=== PATIENT | female | born 1950 | race Hispanic/Latino ===

== ENCOUNTER → 2017-08-26 | Outpatient (CLI) | payer OTHER, MEDICARE | END | disposition home or self-care (01) | LOC: RAH 13:22 | PROVIDERS: ATTEND Family Medicine | DX: I73.89 Other specified peripheral vascular diseases (principal); M79.89 Other specified soft tissue disorders | CPT/HCPCS: 93971 ==

== ENCOUNTER 2019-07-02 18:00 | Observation (INO) | payer OTHER, MEDICARE ==
[~2019-07-02] VITALS: Ht 165.1 cm; Wt 72.2 kg
[2019-07-02 18:36] LABS: BASOPHILS % (AUTO) 0.4 % (0.0-5.0); EOSINOPHILS % (AUTO) 1.2 % (0.0-8.0); HEMATOCRIT 33.2 % (36-48); LYMPHOCYTES % (AUTO) 11.6 % (21.0-51.0); MEAN CORPUSCULAR HEMOGLOBIN 28.5 pg (27.0-33.0); MEAN CORPUSCULAR HGB CONC 33.1 g/dL (32.0-36.0); MEAN CORPUSCULAR VOLUME 86.2 fL (79-99); MONOCYTES % (AUTO) 5.7 % (3.0-13.0); NEUTROPHILS % (AUTO) 81.1 % (40.0-77.0); NUCLEATED RED BLOOD CELLS 0.1 % (0.0-0.19); PLATELET COUNT (AUTO) 218 K/uL (130-400); RED BLOOD CELL COUNT(AUTO) 3.85 MIL/uL (4.00-5.50); RED CELL DISTRIBUTION WIDTH 13.9 % (11.0-15.5); WHITE BLOOD COUNT (AUTO) 12.7 K/uL (4.8-10.8)
[2019-07-02 18:48] LABS: CARBON DIOXIDE 27 mmol/L (21-32); CHLORIDE 100 mmol/L (101-111); CREATININE 1.5 mg/dL (0.5-1.5); GLOMERULAR FILTR. RATE CALC 37 mL/min (>60); GLUCOSE,RANDOM 320 mg/dL (70-105); POTASSIUM 4.9 mmol/L (3.5-5.1); SODIUM SERUM 135 mmol/L (136-145); UREA NITROGEN, BLOOD 31 mg/dL (7-18)
[2019-07-02 18:57] LABS: INR 0.93 (0.85-1.15); PARTIAL THROMBOPLASTIN TIME 24.3 SEC (26.3-35.5); PROTHROMBIN TIME 9.8 SEC (9.6-11.6)
[2019-07-02 18:59] LABS: ALANINE AMINOTRANSFERASE 15 U/L (12-78); ALBUMIN 2.8 g/dL (3.5-5.0); ASPARTATE AMINOTRANSFERASE 16 U/L (10-37); BILIRUBIN,TOTAL 0.2 mg/dL (0.2-1.0); CREATINE KINASE, TOTAL 154 U/L (21-232); MYOGLOBIN 97 ng/mL (10-92); TOTAL PROTEIN, SERUM 6.9 g/dL (6.0-8.3); TROPONIN I < 0.04 ng/mL (0.00-0.06)
[2019-07-02 19:30] LABS: APPEARANCE,URINE Clear (CLEAR); BILIRUBIN,URINE Negative (NEGATIVE); COLOR,URINE Yellow (YELLOW); GLUCOSE, URINE (UA) >=1000 mg/dL (NEGATIVE); KETONES,URINE Negative (NEGATIVE); LEUKOCYTE ESTERASE ,URINE Negative (NEGATIVE); NITRATE,URINE Positive (NEGATIVE); OCCULT BLOOD,URINE Moderate (NEGATIVE); PROTEIN,URINE 300 mg/dL (NEGATIVE); UROBILINOGEN,URINE 0.2 mg/dL (0.2-1.0)
[2019-07-02] MEDS ORDERED: VANCOMYCIN 1GM+NS 250ML 250 ML IV ONE (19:54)
[2019-07-02] MEDS ORDERED: ZOSYN 3.375GM+NS 50ML 50 ML IV ONE (19:54)
[2019-07-02] MEDS ORDERED: INSULIN HUMULIN R 100 UNIT/ML 3ML ONE (19:55)
[2019-07-02] MEDS ORDERED: SODIUM CHLORIDE 0.9% 1000ML 1,000 ML IV ONE (20:01)
[2019-07-02 20:05] LABS: BACTERIA,URINE Moderate /HPF (None Seen); RBC,URINE 0-1 /HPF (0-1)
[2019-07-02 20:06] LABS: SQUAMOUS EPITHELIAL CELL,UR Few /HPF (0-2)
[2019-07-02] MEDS ORDERED: DEXTROSE 50%-WATER 50 ML DISP.SYRIN IV PRN (21:30)
[2019-07-02] MEDS ORDERED: GLUCAGON 1MG KIT 1 MG ML IM PRN (21:30)
[2019-07-02 22:10] VITALS: BP 147/70
[2019-07-03] VITALS (7 sets, daily range): BP systolic 131–169; BP diastolic 59–79
[2019-07-03] MEDS: IBUPROFEN 800 MG TAB PO SCH ×4 (00:12→18:00)
[2019-07-03] MEDS ORDERED: ZOLPIDEM TARTRATE 5 MG TAB PO PRN (02:45)
[2019-07-03] MEDS ORDERED: GUAIFENESIN-DM 200/20 MG 10 ML PO PRN (02:45)
[2019-07-03] MEDS ORDERED: NITROGLYCERIN 0.4 MG SL TAB SL PRN (02:45)
[2019-07-03] MEDS ORDERED: DIPHENHYDRAMINE HCL 25 MG CAPSULE PO PRN (02:45)
[2019-07-03] MEDS ORDERED: ACETAMINOPHEN 325 MG TAB PO PRN ×2 (02:45)
[2019-07-03] MEDS ORDERED: ONDANSETRON HCL 4 MG/2 ML VIAL IVP PRN (02:45)
[2019-07-03] MEDS ORDERED: MAG HYDROX/AL HYDROX/SIMETH ES 30 ML SUSP UDCUP PO PRN (02:45)
[2019-07-03] MEDS ORDERED: VANCOMYCIN PROTOCOL PER PHARMACY IV SCH (02:45)
[2019-07-03] MEDS ORDERED: GUAIFENESIN SUGAR-FREE 100 MG/5 ML UDCUP PO PRN (02:45)
[2019-07-03] MEDS ORDERED: LACTULOSE 20 GM/30 ML UDCUP PO PRN (02:45)
[2019-07-03] MEDS ORDERED: DiphenhydrAMINE HCL 50 MG/ML VIAL IVP PRN (02:45)
[2019-07-03] MEDS ORDERED: CLONIDINE HCL 0.1 MG TABLET PO PRN (02:45)
[2019-07-03] MEDS: ZOSYN 3.375GM+NS 50ML 50 ML IV SCH ×3 (04:14→20:26)
[2019-07-03 05:01] LABS: HEMATOCRIT 28.2 % (36-48); MEAN CORPUSCULAR HEMOGLOBIN 28.6 pg (27.0-33.0); MEAN CORPUSCULAR HGB CONC 33.4 g/dL (32.0-36.0); MEAN CORPUSCULAR VOLUME 85.6 fL (79-99); PLATELET COUNT (AUTO) 202 K/uL (130-400); RED BLOOD CELL COUNT(AUTO) 3.29 MIL/uL (4.00-5.50); RED CELL DISTRIBUTION WIDTH 14.2 % (11.0-15.5); WHITE BLOOD COUNT (AUTO) 10.1 K/uL (4.8-10.8)
[2019-07-03 05:19] LABS: ALBUMIN 2.3 g/dL (3.5-5.0); BILIRUBIN,TOTAL 0.2 mg/dL (0.2-1.0); CREATININE 1.7 mg/dL (0.5-1.5); POTASSIUM 4.5 mmol/L (3.5-5.1); TOTAL PROTEIN, SERUM 5.9 g/dL (6.0-8.3)
[2019-07-03] MEDS: INSULIN R PO SS2 SQ SCH ×4 (06:10→20:31)
[2019-07-03] MEDS: PANTOPRAZOLE SODIUM 40 MG TABLET.DR PO SCH (08:42)
[2019-07-03] MEDS: ASPIRIN 81MG TAB.CHEW PO SCH (08:42)
[2019-07-03] MEDS ORDERED: OMEP-50 PO (11:08)
[2019-07-03] MEDS ORDERED: INSU100I13 SQ (11:08)
[2019-07-03] MEDS ORDERED: LEVO150T11 PO (11:08)
[2019-07-03] MEDS ORDERED: LISI10TA7 PO (11:08)
[2019-07-03] MEDS ORDERED: ATOR-2 PO (11:08)
[2019-07-03] MEDS ORDERED: HONEY 1 APPL/ML TUBE TP SCH (15:30)
[2019-07-03] MEDS: VANCOMYCIN 1GM+NS 250ML 250 ML IV SCH (16:59)
[2019-07-03] MEDS ORDERED: ATORVASTATIN CALCIUM 40 MG TABLET PO SCH (21:00)
[2019-07-04] MEDS: IBUPROFEN 800 MG TAB PO SCH ×3 (00:32→12:58)
[2019-07-04 03:57] VITALS: BP 120/54
[2019-07-04] MEDS: ZOSYN 3.375GM+NS 50ML 50 ML IV SCH (04:03)
[2019-07-04 04:19] LABS: BASOPHILS % (AUTO) 0.6 % (0.0-5.0); EOSINOPHILS % (AUTO) 3.9 % (0.0-8.0); HEMATOCRIT 28.1 % (36-48); LYMPHOCYTES % (AUTO) 21.2 % (21.0-51.0); MEAN CORPUSCULAR VOLUME 85.3 fL (79-99); MONOCYTES % (AUTO) 6.6 % (3.0-13.0); NEUTROPHILS % (AUTO) 67.7 % (40.0-77.0); PLATELET COUNT (AUTO) 200 K/uL (130-400); RED BLOOD CELL COUNT(AUTO) 3.29 MIL/uL (4.00-5.50); RED CELL DISTRIBUTION WIDTH 13.7 % (11.0-15.5); WHITE BLOOD COUNT (AUTO) 9.2 K/uL (4.8-10.8)
[2019-07-04 04:26] LABS: HEMOGLOBIN A1C 10.4 % (4.0-6.0)
[2019-07-04 04:42] LABS: ALBUMIN 2.2 g/dL (3.5-5.0); BILIRUBIN,TOTAL 0.4 mg/dL (0.2-1.0); CREATININE 1.8 mg/dL (0.5-1.5); POTASSIUM 4.6 mmol/L (3.5-5.1); TOTAL PROTEIN, SERUM 5.8 g/dL (6.0-8.3)
[2019-07-04] MEDS: INSULIN R PO SS2 SQ SCH (06:10)
[2019-07-04] MEDS ORDERED: LEVOTHYROXINE 150 MCG TABLET PO SCH (06:30)
[2019-07-04] MEDS ORDERED: PHARMACY COMMUNICATION MISC SCH ×2 (07:15→11:15)
[2019-07-04 07:30] VITALS: BP 136/67
[2019-07-04] MEDS ORDERED: NON-FORMULARY MEDICATION 1 EACH (Omeprazole 20 MG) PO SCH (07:30)
[2019-07-04] MEDS ORDERED: INSULIN LISPRO SQ SCH (09:00)
[2019-07-04] MEDS ORDERED: LISINOPRIL 10 MG TABLET PO SCH (09:00)
[2019-07-04] MEDS ORDERED: INSULIN LISPRO PROTAMINE SQ SCH (09:00)
[2019-07-04] MEDS: ASPIRIN 81MG TAB.CHEW PO SCH (09:59)
[2019-07-04] MEDS: PANTOPRAZOLE SODIUM 40 MG TABLET.DR PO SCH (10:00)
[2019-07-04 11:00] VITALS: BP 128/71
[2019-07-04] MEDS: VANCOMYCIN 1GM+NS 250ML 250 ML IV SCH (11:10)
== END 2019-07-04 16:50 | disposition home or self-care (01) ==
LOC: EDH 18:00 → EDHIP 20:55 → 4CH 21:54
PROVIDERS: ADMIT Family Medicine; ATTEND Family Medicine
DX: L03.032 Cellulitis of left toe (principal); E11.628 Type 2 diabetes mellitus with other skin complications; E11.621 Type 2 diabetes mellitus with foot ulcer; L97.509 Non-pressure chronic ulcer of other part of unspecified foot with unspecified severity; E78.5 Hyperlipidemia, unspecified; I25.10 Atherosclerotic heart disease of native coronary artery without angina pectoris; I10 Essential (primary) hypertension; Z91.19 Patient's noncompliance with other medical treatment and regimen; Z79.4 Long term (current) use of insulin; Z79.899 Other long term (current) drug therapy
CPT/HCPCS: 36415 ×3; 71045; 73630; 80053 ×3; 80202; 81001; 82550; 82948 ×7; 83036; 83605; 83874; 84484; 85025 ×2; 85027; 85610; 85651; 85730; 87040 ×2; 87077; 87088; 87186; 93005; 93925; 96365; 96366 ×3; 96367; 96372; 99284; G0378 ×44; J1815 ×3; J2543 ×5; J3370 ×3; J7030

== ENCOUNTER → 2019-07-19 | Outpatient (CLI) | payer OTHER, MEDICARE ==
[~2019-07-19] MED LIST: ATOR-2 PO; INSU100I13 SQ; LEVO150T11 PO; LIDOCAINE/PRILOCAINE CREAM 5GM TUBE TP ONE; LISI10TA7 PO; OMEP-298 PO
[2019-07-19 13:21] VITALS: BP 112/62
== END | disposition home or self-care (01) ==
LOC: WHH 08:00
PROVIDERS: ATTEND Podiatrist Foot & Ankle Surgery
DX: E11.621 Type 2 diabetes mellitus with foot ulcer (principal); L97.522 Non-pressure chronic ulcer of other part of left foot with fat layer exposed; E11.42 Type 2 diabetes mellitus with diabetic polyneuropathy; E11.22 Type 2 diabetes mellitus with diabetic chronic kidney disease; I12.9 Hypertensive chronic kidney disease with stage 1 through stage 4 chronic kidney disease, or unspecified chronic kidney disease; N18.1 Chronic kidney disease, stage 1; I25.10 Atherosclerotic heart disease of native coronary artery without angina pectoris; E78.5 Hyperlipidemia, unspecified; F32.9 Major depressive disorder, single episode, unspecified; Z79.4 Long term (current) use of insulin
CPT/HCPCS: 11042; 87070; J3490; L3260

== ENCOUNTER → 2019-08-07 | Outpatient (CLI) | payer OTHER, MEDICARE ==
[~2019-08-07] MED LIST changes: -LIDOCAINE/PRILOCAINE CREAM 5GM TUBE TP ONE
== END | disposition home or self-care (01) ==
LOC: WHH 09:30
PROVIDERS: ATTEND Podiatrist Foot & Ankle Surgery
DX: E11.621 Type 2 diabetes mellitus with foot ulcer (principal); L97.522 Non-pressure chronic ulcer of other part of left foot with fat layer exposed; E11.42 Type 2 diabetes mellitus with diabetic polyneuropathy; E11.22 Type 2 diabetes mellitus with diabetic chronic kidney disease; I12.9 Hypertensive chronic kidney disease with stage 1 through stage 4 chronic kidney disease, or unspecified chronic kidney disease; N18.1 Chronic kidney disease, stage 1; I25.10 Atherosclerotic heart disease of native coronary artery without angina pectoris; E78.5 Hyperlipidemia, unspecified; F32.9 Major depressive disorder, single episode, unspecified; Z79.4 Long term (current) use of insulin
CPT/HCPCS: G0463

== ENCOUNTER → 2019-08-16 | Outpatient (CLI) | payer OTHER, MEDICARE ==
[~2019-08-16] MED LIST changes: +HONEY 1 APPL/ML TUBE TP ONE; -OMEP-298 PO; +OMEP20CA12 PO
[2019-08-16 14:13] VITALS: BP 114/58
== END | disposition home or self-care (01) ==
LOC: WHH 09:00
PROVIDERS: ATTEND Podiatrist Foot & Ankle Surgery
DX: E11.621 Type 2 diabetes mellitus with foot ulcer (principal); L97.522 Non-pressure chronic ulcer of other part of left foot with fat layer exposed; E11.42 Type 2 diabetes mellitus with diabetic polyneuropathy; E11.22 Type 2 diabetes mellitus with diabetic chronic kidney disease; I12.9 Hypertensive chronic kidney disease with stage 1 through stage 4 chronic kidney disease, or unspecified chronic kidney disease; N18.1 Chronic kidney disease, stage 1; I25.10 Atherosclerotic heart disease of native coronary artery without angina pectoris; E78.5 Hyperlipidemia, unspecified; F32.9 Major depressive disorder, single episode, unspecified; Z79.4 Long term (current) use of insulin
CPT/HCPCS: 11042

== ENCOUNTER → 2019-08-30 | Outpatient (CLI) | payer OTHER, MEDICARE ==
[~2019-08-30] MED LIST changes: -HONEY 1 APPL/ML TUBE TP ONE
[2019-08-30 13:53] VITALS: BP 147/64
== END | disposition home or self-care (01) ==
LOC: WHH 09:12
PROVIDERS: ATTEND Podiatrist Foot & Ankle Surgery
DX: E11.621 Type 2 diabetes mellitus with foot ulcer (principal); L97.522 Non-pressure chronic ulcer of other part of left foot with fat layer exposed; E11.22 Type 2 diabetes mellitus with diabetic chronic kidney disease; I12.9 Hypertensive chronic kidney disease with stage 1 through stage 4 chronic kidney disease, or unspecified chronic kidney disease; N18.1 Chronic kidney disease, stage 1; E11.42 Type 2 diabetes mellitus with diabetic polyneuropathy; I25.10 Atherosclerotic heart disease of native coronary artery without angina pectoris; E78.5 Hyperlipidemia, unspecified; F32.9 Major depressive disorder, single episode, unspecified; F41.9 Anxiety disorder, unspecified; Z79.899 Other long term (current) drug therapy; Z79.4 Long term (current) use of insulin
CPT/HCPCS: 11042; 73630; A6021

== ENCOUNTER → 2019-09-13 | Outpatient (CLI) | payer OTHER, MEDICARE ==
[~2019-09-13] MED LIST changes: +CADEXOMER IODINE 40 GM GEL TP ONE
[2019-09-13 13:29] VITALS: BP 134/61
== END | disposition home or self-care (01) ==
LOC: WHH 09:30
PROVIDERS: ATTEND Podiatrist Foot & Ankle Surgery
DX: E11.621 Type 2 diabetes mellitus with foot ulcer (principal); L97.521 Non-pressure chronic ulcer of other part of left foot limited to breakdown of skin; E11.22 Type 2 diabetes mellitus with diabetic chronic kidney disease; I12.9 Hypertensive chronic kidney disease with stage 1 through stage 4 chronic kidney disease, or unspecified chronic kidney disease; N18.1 Chronic kidney disease, stage 1; E11.42 Type 2 diabetes mellitus with diabetic polyneuropathy; E78.5 Hyperlipidemia, unspecified; I25.10 Atherosclerotic heart disease of native coronary artery without angina pectoris; F41.9 Anxiety disorder, unspecified; F32.9 Major depressive disorder, single episode, unspecified; Z79.4 Long term (current) use of insulin; Z79.899 Other long term (current) drug therapy
CPT/HCPCS: 87070; 87077; 87186; 97597

== ENCOUNTER → 2019-09-27 | Outpatient (CLI) | payer OTHER, MEDICARE ==
[~2019-09-27] MED LIST changes: -CADEXOMER IODINE 40 GM GEL TP ONE
[2019-09-27 15:30] VITALS: BP 115/72
== END | disposition home or self-care (01) ==
LOC: WHH 09:50
PROVIDERS: ATTEND Podiatrist Foot & Ankle Surgery
DX: E11.621 Type 2 diabetes mellitus with foot ulcer (principal); L97.521 Non-pressure chronic ulcer of other part of left foot limited to breakdown of skin; E11.22 Type 2 diabetes mellitus with diabetic chronic kidney disease; I12.9 Hypertensive chronic kidney disease with stage 1 through stage 4 chronic kidney disease, or unspecified chronic kidney disease; N18.1 Chronic kidney disease, stage 1; E11.42 Type 2 diabetes mellitus with diabetic polyneuropathy; I25.10 Atherosclerotic heart disease of native coronary artery without angina pectoris; E78.5 Hyperlipidemia, unspecified; F32.9 Major depressive disorder, single episode, unspecified; F41.9 Anxiety disorder, unspecified; Z79.4 Long term (current) use of insulin; Z79.899 Other long term (current) drug therapy
CPT/HCPCS: G0463

== ENCOUNTER → 2019-10-04 | Outpatient (CLI) | payer OTHER, MEDICARE ==
[2019-10-04 14:12] VITALS: BP 133/70
== END | disposition home or self-care (01) ==
LOC: WHH 08:00
PROVIDERS: ATTEND Podiatrist Foot & Ankle Surgery
DX: E11.621 Type 2 diabetes mellitus with foot ulcer (principal); L97.522 Non-pressure chronic ulcer of other part of left foot with fat layer exposed; E11.22 Type 2 diabetes mellitus with diabetic chronic kidney disease; I12.9 Hypertensive chronic kidney disease with stage 1 through stage 4 chronic kidney disease, or unspecified chronic kidney disease; N18.1 Chronic kidney disease, stage 1; E11.42 Type 2 diabetes mellitus with diabetic polyneuropathy; I25.10 Atherosclerotic heart disease of native coronary artery without angina pectoris; E78.5 Hyperlipidemia, unspecified; F41.9 Anxiety disorder, unspecified; F32.9 Major depressive disorder, single episode, unspecified; Z79.4 Long term (current) use of insulin; Z79.899 Other long term (current) drug therapy
CPT/HCPCS: 11042; 87070; 87077; 87186

== ENCOUNTER → 2019-10-11 | Outpatient (CLI) | payer OTHER, MEDICARE ==
[2019-10-11 10:43] VITALS: BP 113/57
== END | disposition home or self-care (01) ==
LOC: WHH 09:00
PROVIDERS: ATTEND Podiatrist Foot & Ankle Surgery
DX: E11.621 Type 2 diabetes mellitus with foot ulcer (principal); L97.521 Non-pressure chronic ulcer of other part of left foot limited to breakdown of skin; E11.22 Type 2 diabetes mellitus with diabetic chronic kidney disease; I12.9 Hypertensive chronic kidney disease with stage 1 through stage 4 chronic kidney disease, or unspecified chronic kidney disease; N18.1 Chronic kidney disease, stage 1; E11.42 Type 2 diabetes mellitus with diabetic polyneuropathy; I25.10 Atherosclerotic heart disease of native coronary artery without angina pectoris; E78.5 Hyperlipidemia, unspecified; F32.9 Major depressive disorder, single episode, unspecified; F41.9 Anxiety disorder, unspecified; Z79.899 Other long term (current) drug therapy; Z79.4 Long term (current) use of insulin
CPT/HCPCS: G0463

== ENCOUNTER 2019-11-01 09:00 | Outpatient (CLI) | payer OTHER, MEDICARE ==
[2019-11-01 09:31] VITALS: BP 178/83
== END 2019-11-01 10:18 | disposition home or self-care (01) ==
LOC: WHH 09:00
PROVIDERS: ATTEND Podiatrist Foot & Ankle Surgery
DX: E11.621 Type 2 diabetes mellitus with foot ulcer (principal); L97.528 Non-pressure chronic ulcer of other part of left foot with other specified severity; E11.22 Type 2 diabetes mellitus with diabetic chronic kidney disease; I12.9 Hypertensive chronic kidney disease with stage 1 through stage 4 chronic kidney disease, or unspecified chronic kidney disease; N18.1 Chronic kidney disease, stage 1; E11.42 Type 2 diabetes mellitus with diabetic polyneuropathy; I25.10 Atherosclerotic heart disease of native coronary artery without angina pectoris; E78.5 Hyperlipidemia, unspecified; F32.9 Major depressive disorder, single episode, unspecified; F41.9 Anxiety disorder, unspecified; Z79.899 Other long term (current) drug therapy; Z79.4 Long term (current) use of insulin
CPT/HCPCS: G0463

== ENCOUNTER → 2021-06-30 | Outpatient (CLI) | payer OTHER, MEDICARE ==
[~2021-06-30] MED LIST changes: +FURO40TA5 PO; +LISI10TA24 PO; -LISI10TA7 PO; +METO2.5T2 PO; +insulin SQ
[2021-06-30] MEDS: REGADENOSON 0.4 MG/5 ML PF SYG IVP SCH (16:06)
== END | disposition home or self-care (01) ==
LOC: SHCH 08:26
PROVIDERS: ATTEND Internal Medicine Cardiovascular Disease
DX: R06.02 Shortness of breath (principal); R94.31 Abnormal electrocardiogram [ECG] [EKG]; E78.5 Hyperlipidemia, unspecified
CPT/HCPCS: 78452; 93017; 96374; A9500 ×2; J2785

== ENCOUNTER 2021-07-09 06:59 | Day surgery (SDC) | payer OTHER, MEDICARE ==
[2021-07-07 15:24] LABS: BASOPHILS % (AUTO) 0.7 % (0.0-5.0); LYMPHOCYTES % (AUTO) 26.3 % (21.0-51.0); MEAN CORPUSCULAR HGB CONC 31.2 g/dL (32.0-36.0); MEAN CORPUSCULAR VOLUME 86.4 fL (79-99); MONOCYTES % (AUTO) 6.9 % (3.0-13.0); NEUTROPHILS % (AUTO) 63.7 % (40.0-77.0); PLATELET COUNT (AUTO) 256 K/uL (130-400); RED BLOOD CELL COUNT(AUTO) 3.82 MIL/uL (4.00-5.50); RED CELL DISTRIBUTION WIDTH 13.6 % (11.0-15.5); WHITE BLOOD COUNT (AUTO) 6.9 K/uL (4.8-10.8)
[2021-07-07 15:32] LABS: POTASSIUM 4.3 mmol/L (3.5-5.1)
[2021-07-07 15:34] LABS: INR 0.97 (0.85-1.15); PROTHROMBIN TIME 10.6 SEC (9.6-11.6)
[2021-07-07 15:36] LABS: PARTIAL THROMBOPLASTIN TIME 22.5 SEC (26.3-35.5)
[2021-07-08 15:36] VITALS: BP 92/47
[2021-07-09] VITALS (21 sets, daily range): BP systolic 135–184; BP diastolic 59–89
[~2021-07-09] VITALS: Ht 157.5 cm; Wt 69.8 kg
[~2021-07-09 06:59] MED LIST changes: -ATOR-2 PO; -INSU100I13 SQ; -LISI10TA24 PO; -OMEP20CA12 PO
[2021-07-09] MEDS ORDERED: NALOXONE HCL 0.4 MG/1 ML ML ONE (08:01)
[2021-07-09] MEDS ORDERED: LIDOCAINE HCL 2% VISCOUS 15 ML UDCUP ONE (08:01)
[2021-07-09] MEDS ORDERED: FENTANYL CITRATE PF 50 MCG/1 ML 2ML VIAL ONE (08:02)
[2021-07-09] MEDS ORDERED: 0.9%NACL 1000ML 1,000 ML IV ONE (08:02)
[2021-07-09] MEDS ORDERED: FLUMAZENIL 0.1MG/1ML 5ML VIAL IV ONE (08:03)
[2021-07-09] MEDS ORDERED: MIDAZOLAM HCL 1 MG/ML 2ML VIAL ONE (08:03)
[2021-07-09] MEDS ORDERED: 0.9%NACL 1000ML 1,000 ML IV SCH (09:00)
== END 2021-07-09 10:00 | disposition home or self-care (01) ==
LOC: DAH 06:59 → EDSTATUS 14:00
PROVIDERS: ATTEND Student in an Organized Health Care Education/Training Program
DX: I34.0 Nonrheumatic mitral (valve) insufficiency (principal); I45.10 Unspecified right bundle-branch block; E11.22 Type 2 diabetes mellitus with diabetic chronic kidney disease; I12.9 Hypertensive chronic kidney disease with stage 1 through stage 4 chronic kidney disease, or unspecified chronic kidney disease; N18.1 Chronic kidney disease, stage 1; E03.9 Hypothyroidism, unspecified; I25.10 Atherosclerotic heart disease of native coronary artery without angina pectoris; E78.2 Mixed hyperlipidemia; E66.9 Obesity, unspecified; Z79.01 Long term (current) use of anticoagulants; Z68.28 Body mass index [BMI] 28.0-28.9, adult; Z79.899 Other long term (current) drug therapy
CPT/HCPCS: 36415; 80048; 82948; 85025; 85610; 85730; 93005; 93312; 93325; A4215; A4216; A4221; A4222; A4223 ×3; A4606; A4615; A4663; A7002; J2250; J3010; J7030; 93313; J2310; J3490

== ENCOUNTER → 2021-12-23 | Outpatient (CLI) | payer OTHER, MEDICARE ==
[2021-12-23 12:38] LABS: CREATININE 2.7 mg/dL (0.5-1.5); POTASSIUM 4.6 mmol/L (3.5-5.1)
== END | disposition home or self-care (01) ==
LOC: LAB 11:17
PROVIDERS: ATTEND Student in an Organized Health Care Education/Training Program
DX: R06.02 Shortness of breath (principal); E78.2 Mixed hyperlipidemia
CPT/HCPCS: 36415; 80048